=== PATIENT | female | born 1960 | race Asian ===

== ENCOUNTER 2020-11-22 06:40 | Day surgery (SDC) | payer OTHER ==
[~2020-11-22] VITALS: Ht 162.6 cm; Wt 68.5 kg
[2020-11-22] MEDS ORDERED: fentaNYL citrate 0.05 MG/ML VIAL ONE (08:15)
[2020-11-22] MEDS ORDERED: LIDOCAINE 2% 100 MG/5 ML UJET TP ONE ×2 (08:16→08:50)
[2020-11-22] MEDS ORDERED: fentaNYL citrate 0.05 MG/ML VIAL IVP ONE (08:50)
== END 2020-11-22 09:28 | disposition home or self-care (01) ==
LOC: MDS 06:40 → MFCC 06:42 → MDS 09:28
PROVIDERS: ATTEND Internal Medicine Gastroenterology
DX: Z12.11 Encounter for screening for malignant neoplasm of colon (principal); K63.5 Polyp of colon; K62.1 Rectal polyp; Z79.899 Other long term (current) drug therapy
CPT/HCPCS: 45380; J3010